=== PATIENT | male | born 1940 | race Caucasian/White ===

== ENCOUNTER 2016-10-14 08:10 | Inpatient (IN) | payer MEDICARE, BC ==
[~2016-10-14] VITALS: Ht 177.8 cm; Wt 87.4 kg
[~2016-10-14 08:10] MED LIST: ARTIFICIAL TEAR15 M7 OU; ASPIRIN 81M81 MG/TA2 PO; BENADRYL25 M2 PO; CENTRUM SILVER1 CTB PO; CIPRO 500MG TA500 MG PO; CO Q-1050 MG PO; COREG 3.123.125 MG/T PO; GAVISCON 80 MG-1 CT1 PO; LEVAQUIN 5500 MG/TA1 PO; LIPITOR 10MG10 MG PO; MAOX420 MG PO; NEXIUM 40MG40 MG PO; NITROSTAT0.4 MG/TAB SL; NORCO 325 MG-51 TAB PO; OCUVITE1 TA1 PO; PLAVIX 75MG TAB75 MG PO; PRINIVIL5 MG PO; PYRIDIUM200 M1 PO; RANEXA 500MG T500 MG PO; SUDAFED60 MG; SUDAFED60 MG PO; TAPAZOLE5 MG PO; THE MEDICINE S200 M2 PO; VITAMIN D 1001000 IU PO; [UNRECOGNIZED DRUG - OTHER] PO; [UNRECOGNIZED DRUG - OTHER] PO
[2016-10-14 09:00] VITALS: BP 129/61; PULSE 84; TEMP 97.9
[2016-10-14] MEDS ORDERED: IMDUR 30MG30 MG/TAB PO (09:02)
[2016-10-14] MEDS ORDERED: COUMADIN 5MG5 MG/TAB PO (09:03)
[2016-10-14] MEDS ORDERED: TYLENOL 325MG325 MG PO (09:04)
[2016-10-14] MEDS ORDERED: CHOLESTOFF PO (09:04)
[2016-10-14 10:19] LABS: HEMATOCRIT 43.7 % (42.0-52.0); HEMOGLOBIN 14.5 g/dl (13.5-18.0); MEAN CELL VOLUME 89 fl (80.0-100.0); MEAN CORPUSCULAR HEMOGLOBIN 30 pg (27.0-31.0); MEAN CORPUSCULAR HGB CONC 33 g/dl (33.0-37.0); MEAN PLATELET VOLUME 11.2 fl (7.4-10.4); PLATELET COUNT 186 K/mm3 (130-400); RED BLOOD COUNT 4.89 M/mm3 (4.20-5.60); WHITE BLOOD COUNT 9.7 K/mm3 (4.8-10.8)
[2016-10-14 10:22] LABS: PROTHROMBIN TIME 34.8 SECONDS (9.7-12.8)
[2016-10-14 10:33] LABS: ADJUSTED CALCIUM 9.4 mg/dL (8.4-10.2); ALBUMIN 4.4 gm/dL (3.5-5.0); BILIRUBIN,TOTAL 1.2 mg/dL (0.0-1.0); CALCIUM 9.7 mg/dL (8.4-10.2); CREATININE, serum 0.9 mg/dL (0.66-1.25); MAGNESIUM 2.1 mg/dL (1.6-2.3); POTASSIUM 4.5 mmol/L (3.4-5.0); TOTAL PROTEIN 8.2 gm/dL (6.4-8.2)
[2016-10-14] MEDS ORDERED: MAG-OX 400400 MG/TAB PO (11:29)
[2016-10-14 12:14] VITALS: BP 114/75; PULSE 71; TEMP 97.7
[2016-10-14 14:25] VITALS: BP 114/75; PULSE 71
[2016-10-14 16:13] VITALS: BP 131/66; PULSE 66; TEMP 97.7
[2016-10-14 19:13] VITALS: BP 130/68; PULSE 72; TEMP 98.1
[2016-10-14 23:56] VITALS: BP 105/57; PULSE 57; TEMP 98.3
[2016-10-15] VITALS (8 sets, daily range): BP systolic 97–142; BP diastolic 46–72; PULSE 56–90; TEMP 97.1–98.4
[2016-10-15 07:25] LABS: CALCIUM 9.4 mg/dL (8.4-10.2); CREATININE, serum 0.91 mg/dL (0.66-1.25); INR 2.6 (0.8-3.0); POTASSIUM 4.4 mmol/L (3.4-5.0); PROTHROMBIN TIME 30.2 SECONDS (9.7-12.8)
[2016-10-16 03:54] VITALS: BP 110/58; PULSE 57; TEMP 97.5
[2016-10-16 07:58] VITALS: BP 107/66; PULSE 62; TEMP 97.4
[2016-10-16 08:10] LABS: INR 2.1 (0.8-3.0); PROTHROMBIN TIME 23.9 SECONDS (9.7-12.8)
[2016-10-16 08:18] LABS: CALCIUM 9.3 mg/dL (8.4-10.2); CREATININE, serum 0.87 mg/dL (0.66-1.25); POTASSIUM 4.7 mmol/L (3.4-5.0)
[2016-10-16 11:21] VITALS: BP 117/62; PULSE 62; TEMP 97.4
[2016-10-16] MEDS ORDERED: PEPCID40 MG PO (12:30)
[2016-10-16] MEDS ORDERED: BETAPACE 80MG80 MG PO (12:31)
[2016-10-16] MEDS ORDERED: COZAAR 50MG50 MG/TAB PO (12:31)
== END 2016-10-16 15:11 | disposition home or self-care (01) | DRG 310 ==
LOC: MEDICAL 08:10
PROVIDERS: Internal Medicine Cardiovascular Disease
DX: I48.0 Paroxysmal atrial fibrillation (principal); I47.2 Ventricular tachycardia; K21.9 Gastro-esophageal reflux disease without esophagitis; J44.9 Chronic obstructive pulmonary disease, unspecified; G47.33 Obstructive sleep apnea (adult) (pediatric); I71.4 Abdominal aortic aneurysm, without rupture; I25.2 Old myocardial infarction; Z95.1 Presence of aortocoronary bypass graft; Z79.01 Long term (current) use of anticoagulants; Z95.5 Presence of coronary angioplasty implant and graft
CPT/HCPCS: A9502; J2785

== ENCOUNTER 2016-10-25 06:48 | Day surgery (SDC) | payer MEDICARE, BC ==
[~2016-10-25] VITALS: Ht 177.8 cm; Wt 87.2 kg
[2016-10-25] VITALS (9 sets, daily range): BP systolic 105–159; BP diastolic 53–102; PULSE 45–85; TEMP 97.7–98.9
[~2016-10-25 06:48] MED LIST changes: +BETAPACE 80MG80 MG PO; +CHOLESTOFF PO; +COUMADIN 5MG5 MG/TAB PO; +COZAAR 50MG50 MG/TAB PO; +IMDUR 30MG30 MG/TAB PO; +MAG-OX 400400 MG/TAB PO; +PEPCID40 MG PO; +TYLENOL 325MG325 MG PO
[2016-10-25 07:37] LABS: HEMATOCRIT 43.3 % (42.0-52.0); HEMOGLOBIN 14.5 g/dl (13.5-18.0); MEAN CELL VOLUME 87 fl (80.0-100.0); MEAN CORPUSCULAR HEMOGLOBIN 29 pg (27.0-31.0); MEAN CORPUSCULAR HGB CONC 34 g/dl (33.0-37.0); MEAN PLATELET VOLUME 11.4 fl (7.4-10.4); PLATELET COUNT 135 K/mm3 (130-400); RED BLOOD COUNT 4.97 M/mm3 (4.20-5.60); REDCELL DISTRIBUTION WIDTH-CV 13.7 % (11.5-14.5)
[2016-10-25 07:44] LABS: INR 1.8 (0.8-3.0); PROTHROMBIN TIME 20.4 SECONDS (9.7-12.8)
[2016-10-25] MEDS ORDERED: COUMADIN 6MG6 MG/TAB PO (08:00)
[2016-10-25 08:12] LABS: CALCIUM 9.4 mg/dL (8.4-10.2); CREATININE, serum 0.87 mg/dL (0.66-1.25); POTASSIUM 4.4 mmol/L (3.4-5.0)
[2016-10-26 00:05] VITALS: BP 126/67; PULSE 61; TEMP 97.7
[2016-10-26 04:06] VITALS: BP 127/62; PULSE 95; TEMP 98.1
[2016-10-26 08:54] VITALS: BP 119/54; PULSE 70; TEMP 97.6
[2016-10-26] MEDS ORDERED: CLEOCIN HCL300 MG PO (12:03)
[2016-10-26 12:07] VITALS: BP 126/66; PULSE 59; TEMP 97.8
== END 2016-10-26 14:30 | disposition home or self-care (01) ==
LOC: EUO 06:48 → COL.RAD 07:00 → MEDICAL 11:14 → EUO 10-26 14:30
PROVIDERS: Internal Medicine Cardiovascular Disease
DX: I25.5 Ischemic cardiomyopathy (principal); I47.2 Ventricular tachycardia; I25.10 Atherosclerotic heart disease of native coronary artery without angina pectoris; Z95.1 Presence of aortocoronary bypass graft; E78.5 Hyperlipidemia, unspecified; I71.4 Abdominal aortic aneurysm, without rupture; K21.9 Gastro-esophageal reflux disease without esophagitis; J44.9 Chronic obstructive pulmonary disease, unspecified; G47.30 Sleep apnea, unspecified
CPT/HCPCS: OP; C1721; C1894; C1895; C1898; J2250; J3010; J3370; J7050

== ENCOUNTER 2020-11-10 18:34 | Inpatient (IN) | payer MEDICARE, BC ==
[~2020-11-10] VITALS: Ht 177.8 cm; Wt 77.9 kg
[~2020-11-10 18:34] MED LIST changes: +CLEOCIN HCL300 MG PO; +COUMADIN 6MG6 MG/TAB PO
--- NOTE | 2020-11-10 19:40 | NUR ---
PT ARRIVES VIA AMBULANCE STRETCHER. IS ALERT AND ORIENTED X4. SL TO LEFT FOREARM. HAS DRSGS TO BILATERAL LOWER LEGS. ABD DISTENDED.
[2020-11-10] MEDS ORDERED: ALDACTONE 25MG25 M1 PO (19:52)
[2020-11-10] MEDS ORDERED: BETAPACE AF160 MG PO (19:53)
[2020-11-10] MEDS ORDERED: COUMADIN 2MG2 MG/TAB PO (20:26)
[2020-11-10] MEDS ORDERED: COUMADIN 1MG1 MG/TAB PO (20:26)
[2020-11-10] MEDS ORDERED: PROTONIX20 MG PO (20:31)
[2020-11-10 20:35] LABS: PHOSPHOROUS 3.2 mg/dL (2.5-4.5)
[2020-11-10 20:38] VITALS: BP 139/71; PULSE 70; TEMP 97.4
[2020-11-10 20:58] LABS: TROPONIN-I < 0.012 ng/mL (0.000-0.035)
--- NOTE | 2020-11-10 21:37 | NUR ---
Vancomycin Initial Dosing Pharmacy Note Ordering provider: Mustapha Grant MD 80 YO M Indication/duration: SSTI/ 7 DAYS GOAL: 10-20 DOSING HX: NO LEVELS TO ASSOCIATE WITH PREVIOUS DOSING BMI:28.3 WT: 89.5 KG OSH SCR: 1.1 EST CRCL~ 66 ML/MIN T 1/2~ 12H TMAX: 97.4 OSH WBC: 6.7 BCX2 IN PROCESS WOUND CX IN PROCESS NO IMAGING OF AREA AVAILABLE LOADED PT WITH 1750 MG X1 (~20 MG/KG). MAINTENANCE REGIMEN OF 750 MG Q12H INITIATED. WILL FOLLOW RENAL FUNCTION, MICRO, AND PLAN FOR NEED TO ADJUST THERAPY. THANK YOU FOR THIS DOSING CONSULT!
--- NOTE | 2020-11-10 22:08 | NUR ---
PATIENT NO LONGER USES A PAP DEVICE AT HOME. HE DECLINED TO USE OUR PAP DEVICE.
--- NOTE | 2020-11-10 22:15 | NUR ---
PT HAVING INCONTINENT LOOSE STOOLS, REPORTS HE IS UNABLE TO GET UP TO BSC AT THIS TIME. HAS SIGNIFICANT EDMEA FROM ANKLES TO HIPS BILATERALLY. VOIDING PER URINAL. IV VANCO INFUSING WITHOUT PROBLEM TO LEFT ARM IV SITE. ABD DISTENDED. POTASSIUM REPLACEMENT AT BEDSIDE, PT DRINKING SLOWLY.
[2020-11-10 22:26] LABS: COLLECTION METHOD CLEAN CATCH
[2020-11-10 22:39] LABS: MUCOUS Present /lpf; PH 5 (5-8); SQUAMOUS EPITHELIAL None Seen /hpf; URINE APPEARANCE Clear; URINE BACTERIA None Seen /hpf; URINE BILIRUBIN Negative (NEGATIVE); URINE BLOOD 1+ (NEGATIVE); URINE COLOR Yellow; URINE GLUCOSE Negative (NEGATIVE); URINE KETONE Negative (NEGATIVE); URINE LEUKOCYTE ESTERASE Negative (NEGATIVE); URINE NITRATE Negative (NEGATIVE); URINE PROTEIN(semi-quant) 1+ (NEGATIVE); URINE UROBILINOGEN Negative (NEGATIVE)
--- NOTE | 2020-11-10 23:00 | NUR ---
PLACED EXTERNAL MALE CATHETER ON PT. WANTS REMOVED IT IS DIFFICULT TO URINATE WITH IT ON. USING URINAL AT THIS TIME.
[2020-11-10 23:45] VITALS: BP 143/92; PULSE 81; TEMP 97.3
--- NOTE | 2020-11-11 02:04 | NUR ---
TYLENOL 650MG PO FOR GENERAL DISCOMFORT. IV ANTIBIOTICS COMPLETE.
[2020-11-11 05:39] VITALS: BP 132/74; PULSE 68; TEMP 97.4
--- NOTE | 2020-11-11 06:55 | NUR ---
PHONED DR BARRIENTOS FOR NEW CONSULT, WAS INFORMED DR BAY IS SOIL TESTER AT [phone] AND TO CALL THEM.
[2020-11-11 07:22] VITALS: BP 119/76; PULSE 69; TEMP 97.3
--- NOTE | 2020-11-11 08:00 | NUR ---
PATIENT IS ORIENTED X3. VSS WITH TELE INPLACE. DENIES PAIN. NOTED ABD ASCITES. ABD IS DISTENDED AND WITH HYPO BOWL SOUNDS. NO C/O N/V. TOLERATING CLEAR LIQUID DIET. LEFT FORARM IV TO INT. INCONTINENT OF BOWL/BLADDER. PATIENT HAD A SMALL, CAPPS, SOFT-FORMED BM THIS AM. PATIENT SCHEDULED FOR COLONOSCOPY TOMORROW. SEE BOWL PREP ORDER TONIGHT. POTASSIUM PROTOCOL GIVEN. PATIENT HAS EXTENSIVE CARDIAC HX. CALLED CARDIAC CONSULT THIS AM. NOTED BLE WITH POOR VASCULAR FLOW, SCALING/FLAKING, AND +2 EDEMA. HEAD TO TOE ASSESSMENT COMPLETE. CALL LIGHT IN REACH.
[2020-11-11 08:10] LABS: BASO % 0.3 % (0.0-2.0); EOS # 0.1 (0.0-0.7); EOS % 1.9 % (0-4.0); GRAN # 4.4 (1.4-6.5); GRAN % 70.1 % (42.2-75.2); HEMATOCRIT 42.6 % (42.0-52.0); HEMOGLOBIN 13.5 g/dl (13.5-18.0); LYMPH % 16.2 % (20.0-51.0); MEAN CELL VOLUME 90 fl (80.0-100.0); MEAN CORPUSCULAR HEMOGLOBIN 29 pg (27.0-31.0); MEAN CORPUSCULAR HGB CONC 32 g/dl (33.0-37.0); MEAN PLATELET VOLUME 11.9 fl (7.4-10.4); MONO # 0.7 (0.1-0.6); MONO % 11.2 % (1.7-9.3); PLATELET COUNT 153 K/mm3 (130-400); RED BLOOD COUNT 4.72 M/mm3 (4.20-5.60); REDCELL DISTRIBUTION WIDTH-CV 19.9 % (11.5-14.5)
[2020-11-11 08:16] LABS: ALBUMIN 2.7 gm/dL (3.5-5.0); BILIRUBIN,TOTAL 1.8 mg/dL (0.0-1.0); CALCIUM 8.5 mg/dL (8.4-10.2); CREATININE, serum 0.8 (0.66-1.25)
[2020-11-11 09:03] LABS: POTASSIUM 2.9 mmol/L (3.4-5.0)
--- NOTE | 2020-11-11 10:00 | NUR ---
AT BEDSIDE, SEE ORDERS.
--- NOTE | 2020-11-11 10:18 | NUR ---
AT BEDSIDE, SEE ORDERS.
[2020-11-11 11:08] VITALS: BP 117/66; PULSE 66; TEMP 97.2
--- NOTE | 2020-11-11 14:33 | NUR ---
Plan is to return home to [place], resides independently. SW met with patient about care. Patient reports that he has Home care with the [facility] and a home health care wound care nurse. Patient reports he is using the services 2x a week. Patinet reports that he uses a walker that is sit to stad. Patient reports having a CPAP but not using it. Patient reports PCP is Dr. Burch and RX obtained at [facility] without difficulty. Patient reports that his nephew Richard is NOK. ARMANDO educated on services. Will continue to follow for changes in needs.
[2020-11-11 16:46] VITALS: BP 116/76; PULSE 69; TEMP 97.2
--- NOTE | 2020-11-11 17:30 | NUR ---
PATIENT STARTED ON BOWL PREP PER ORDERS. PATIENT HAD A HARD TIME TAKING IN THE ORAL POTASSIUM TODAY. PATIENT SEEMS DISCOURAGED ABOUT DRINKING THE BOWL PREP. PATIENT IS INCONTINENT. BRIEF INPLACE. DIURRETICS WORKING WELL. PATIENT VOIDING FREQUENTLY AND HE LIKES TO LEAVE THE URINAL INPLACE. PATIENT RESTING WITHOUT ANY NEEDS AT THIS TIME.
[2020-11-11 20:00] VITALS: BP 125/82; PULSE 67; TEMP 98.7
--- NOTE | 2020-11-11 23:15 | NUR ---
PT HAS DRANK CLOSE TO 1/2 OF BOWEL PREP BUT STILL HAS NOT HAD ANY BOWEL MOVEMENTS. NO c/o PAIN.
[2020-11-12 00:27] VITALS: BP 118/76; PULSE 69; TEMP 97.5
--- NOTE | 2020-11-12 02:23 | NUR ---
PT HAS FINISHED BOWEL PREP BUT STILL HAS NOT HAD ANY RESULTS.
[2020-11-12 04:01] VITALS: BP 143/80; PULSE 70; TEMP 97.4
--- NOTE | 2020-11-12 05:30 | NUR ---
PT FINALLY HAS STOOL A RESULT OF BOWEL PREP. STOOL WAS WATERY. HE WAS INCONTINENT SO NO SAMPLE WAS OBTAINED.
[2020-11-12 06:35] LABS: BASO % 0.2 % (0.0-2.0); EOS # 0.2 (0.0-0.7); EOS % 3.2 % (0-4.0); GRAN % 67.4 % (42.2-75.2); HEMOGLOBIN 14.9 g/dl (13.5-18.0); LYMPH % 16.2 % (20.0-51.0); MEAN CELL VOLUME 90 fl (80.0-100.0); MEAN CORPUSCULAR HEMOGLOBIN 28 pg (27.0-31.0); MEAN CORPUSCULAR HGB CONC 32 g/dl (33.0-37.0); MEAN PLATELET VOLUME 11.3 fl (7.4-10.4); MONO # 0.8 (0.1-0.6); MONO % 12.7 % (1.7-9.3); PLATELET COUNT 164 K/mm3 (130-400); RED BLOOD COUNT 5.25 M/mm3 (4.20-5.60); REDCELL DISTRIBUTION WIDTH-CV 20.3 % (11.5-14.5)
[2020-11-12 06:50] LABS: INR 1.7 (0.8-3.0); PROTHROMBIN TIME 19.3 SECONDS (9.7-12.8)
[2020-11-12 06:51] LABS: BILIRUBIN,TOTAL 1.9 mg/dL (0.0-1.0); CALCIUM 8.5 mg/dL (8.4-10.2); CREATININE, serum 0.86 (0.66-1.25); MAGNESIUM 1.8 mg/dL (1.6-2.3); POTASSIUM 3.9 mmol/L (3.4-5.0); TOTAL PROTEIN 6.6 gm/dL (6.4-8.2)
[2020-11-12 07:59] VITALS: BP 123/83; PULSE 74; TEMP 97.8
--- NOTE | 2020-11-12 08:50 | NUR ---
CALLED WITH PATIENT STATUS UPDATE. BOWL PREP WAS NOT AFFECTIVE TILL 0500, ROLLER REPORTS WATERY STOOL. PATIENT IS INCONTINENT OF BOWL/BLADDER. PATIENT ON TELE AND IS GOING IN AND OUT OF A-FIB. PATIENT HAS HX OF A-FIB AND IS STABLE IN THE 70-80'S. NO CHEST PAIN OR SOA. CONSENT ON CHART. PRE-OP FLUIDS DRIPPING.
--- NOTE | 2020-11-12 09:10 | NUR ---
PATIENT GOING DOWN TO ENDO VIA BED. CONSENT ON CHART.
[2020-11-12 17:06] VITALS: BP 135/50; PULSE 89; TEMP 98.2
[2020-11-12 20:19] VITALS: BP 128/78; PULSE 85; TEMP 97.6
--- NOTE | 2020-11-12 23:59 | NUR ---
PT HAS BEEN A BIT DISORIENTED, MORE FORGETFUL TONIGHT. PULLING OFF TELE, DISROBING AND TRYING TO GET OUT OF BED. BED ALARM ON.
[2020-11-13 01:35] VITALS: BP 128/79; PULSE 76; TEMP 98
[2020-11-13 04:49] VITALS: BP 118/75; PULSE 71; TEMP 97.5
--- NOTE | 2020-11-13 06:15 | NUR ---
RESTING QUIETLY. UP SEVERAL TIMES TO USE COMMODE. INCONT. OF STOOL AND URINE. PT AWARE OF PARACENTESIS TODAY.
[2020-11-13 06:30] LABS: INR 1.8 (0.8-3.0); PROTHROMBIN TIME 20.5 SECONDS (9.7-12.8)
[2020-11-13 06:35] LABS: ALBUMIN 2.6 gm/dL (3.5-5.0); BILIRUBIN,TOTAL 2.5 mg/dL (0.0-1.0); CALCIUM 8.3 mg/dL (8.4-10.2); CREATININE, serum 0.8 (0.66-1.25); POTASSIUM 3.4 mmol/L (3.4-5.0); TOTAL PROTEIN 5.8 gm/dL (6.4-8.2)
[2020-11-13 08:00] VITALS: BP 110/57; PULSE 68; TEMP 97.8
--- NOTE | 2020-11-13 10:36 | NUR ---
Patient alert and oriented, answers questions appropriately. See assessment. Abdomen firm, distended. Bowel sounds audible x4 quads. +Flatus. +Bowel movement. Incontinent of urine and bowel. BLE with redness, weeping and open areas noted. Foam dressing applied to open areas. Pulses palpable 1+. BLE 2+ edema noted. No c/o at this time.
--- NOTE | 2020-11-13 11:00 | NUR ---
First visit from the soft hat binder. No needs right now.
--- NOTE | 2020-11-13 12:54 | NUR ---
Power Shovel Engineer contacted [facility] to follow up on patient. Lizet at [facility] advised they do provide in home services like cleaning, laundry, and running errands, but not skilled Home Health. Lizet states she believes patient's HH provider is [facility]. ARMANDO contacted Buck at [facility] and confirmed they have patient and would continue to follow him. ARMANDO faxed updates to the [place] office at fax#[phone]. ARMANDO then reviewed PT evaluation from this morning recommending post acute rehab. ARMANDO met with patient who advised his first preference is [facility] and second preference is either [facility] or [facility]. SW discussed transportation to [facility] and patient states he has no family or friends that could take him but could possible utilize [facility] public transportation. ARMANDO faxed referrals to [facility], [facility], and [facility]. SW will continue to follow.
--- NOTE | 2020-11-13 14:48 | NUR ---
Dressing changed to left medial calf. Approx 6cm x 4cm open area, depth approx 1/2cm. Wound bed red, moderated amount of yellow drainage noted. Skin around wound with redness noted, blanchable. Aquacel Ag Advantage applied to wound bed, covered with foam dressing. Pulses 1+ to BLE, no c/o numbness or tingling. Dressing changed to right posterior calf. Approx 2cm x 2cm open area, depth approx 1/4cm noted. Wound bed red, scant amount of yellow drainage noted. Skin around wound bed with redness noted, blanchable. Aquacel Ag Advantage applied to wound bed, covered with foam dressing. Tolerated well.
[2020-11-13 15:50] VITALS: BP 133/64; PULSE 68; TEMP 97.5
--- NOTE | 2020-11-13 16:32 | NUR ---
System Consultant spoke with Sera at [facility] who advised they will follow referral and inquired about acceptance at first preference. ARMANDO spoke with Steff at [facility] who advised she would be here tomorrow afternoon to complete an application with patient. Steff anticipates they should be able to accept but the application has to be reviewed by their team.
--- NOTE | 2020-11-13 19:30 | NUR ---
Pt. laying in bed. Pt. is A&OX3, assessment complete. INT to rt. forearm patent. Pt. denies pain or other needs, call light within reach.
[2020-11-13 20:22] VITALS: BP 127/82; PULSE 77; TEMP 97.4
[2020-11-14 00:01] VITALS: BP 129/82; PULSE 74; TEMP 97.6
[2020-11-14 03:35] VITALS: BP 135/79; PULSE 76; TEMP 97.5
[2020-11-14 07:21] LABS: BASO % 0.2 % (0.0-2.0); EOS # 0.1 (0.0-0.7); EOS % 0.5 % (0-4.0); GRAN # 9.7 (1.4-6.5); GRAN % 83.1 % (42.2-75.2); HEMATOCRIT 46.7 % (42.0-52.0); HEMOGLOBIN 15.2 g/dl (13.5-18.0); LYMPH # 0.8 (1.2-3.4); LYMPH % 6.4 % (20.0-51.0); MEAN CELL VOLUME 88 fl (80.0-100.0); MEAN CORPUSCULAR HEMOGLOBIN 29 pg (27.0-31.0); MEAN CORPUSCULAR HGB CONC 33 g/dl (33.0-37.0); MEAN PLATELET VOLUME 12.1 fl (7.4-10.4); MONO # 1.1 (0.1-0.6); MONO % 9.5 % (1.7-9.3); PLATELET COUNT 153 K/mm3 (130-400); RED BLOOD COUNT 5.31 M/mm3 (4.20-5.60); REDCELL DISTRIBUTION WIDTH-CV 20.2 % (11.5-14.5)
[2020-11-14 07:37] LABS: ALBUMIN 3.2 gm/dL (3.5-5.0); BILIRUBIN,TOTAL 2.8 mg/dL (0.0-1.0); CALCIUM 8.7 mg/dL (8.4-10.2); CREATININE, serum 0.79 (0.66-1.25); POTASSIUM 3.6 mmol/L (3.4-5.0); TOTAL PROTEIN 6.8 gm/dL (6.4-8.2)
[2020-11-14 07:57] VITALS: BP 146/93; PULSE 122; TEMP 97.5
--- NOTE | 2020-11-14 08:00 | NUR ---
Shift assessment completed. Pt was drowsy throughout and stated that he had no pain, but was "just feeling yucky". BP 146/59, pulse 122, O2Sat 86%. Tele in place and INT intact to R hand. HOB elevated.
--- NOTE | 2020-11-14 08:30 | NUR ---
Pt received bed bath, new gown, and oral care. Refused Linen change as he was feeling nauseated.
--- NOTE | 2020-11-14 08:56 | NUR ---
Patient alert and oriented, answers questions appropriately. See assessment. Lungs CTA. Abdomen distended, firm. Bowel sounds active x4 quads. +Flatus. Several loose bowel movements. BLE with 1+ edema noted, pulses palpable. Open area to BLE with dressing CDI. Redness and flaky skin noted to BLE. No c/o at this time.
--- NOTE | 2020-11-14 09:30 | NUR ---
BP 130/91, O2Sat 91%. HOB elevated. Pt states no pain, but is complaining of continuous loose stools.
[2020-11-14 12:00] VITALS: BP 121/80; PULSE 73; TEMP 97.5
--- NOTE | 2020-11-14 12:54 | NUR ---
General Neurologist notified RNJojo that Steff from [facility] will be here this afternoon to screen patient. SW faxed clinical updates and also left a message for SEDRICK Georges at [facility] to follow up on referral as they are second preference if [facility] cannot accept.
[2020-11-14 15:54] VITALS: BP 129/90; PULSE 77; TEMP 97.4
[2020-11-14 20:26] VITALS: BP 129/87; PULSE 74; TEMP 98.4
--- NOTE | 2020-11-14 21:45 | NUR ---
Pt. sitting up in bed. Pt. is A&OX3, assessment complete. INT to rt. wrist patent. Pt. denies pain. Pt. reports that he has not had any more bm's at this time. Pt. denies further needs, call light within reach.
[2020-11-15 00:22] VITALS: BP 134/88; PULSE 73; TEMP 98.5
[2020-11-15 04:30] VITALS: BP 123/65; PULSE 73; TEMP 98.3
[2020-11-15 07:03] VITALS: BP 121/79; PULSE 65; TEMP 98.4
[2020-11-15 07:06] LABS: BASO % 0.3 % (0.0-2.0); EOS # 0.1 (0.0-0.7); EOS % 1.2 % (0-4.0); GRAN % 76.6 % (42.2-75.2); HEMATOCRIT 46.2 % (42.0-52.0); HEMOGLOBIN 14.8 g/dl (13.5-18.0); LYMPH % 12.3 % (20.0-51.0); MEAN CELL VOLUME 88 fl (80.0-100.0); MEAN CORPUSCULAR HEMOGLOBIN 28 pg (27.0-31.0); MEAN CORPUSCULAR HGB CONC 32 g/dl (33.0-37.0); MEAN PLATELET VOLUME 11.9 fl (7.4-10.4); MONO # 0.7 (0.1-0.6); MONO % 9.1 % (1.7-9.3); PLATELET COUNT 145 K/mm3 (130-400); RED BLOOD COUNT 5.27 M/mm3 (4.20-5.60); REDCELL DISTRIBUTION WIDTH-CV 19.8 % (11.5-14.5)
[2020-11-15 07:09] LABS: INR 1.7 (0.8-3.0); PROTHROMBIN TIME 19.1 SECONDS (9.7-12.8)
[2020-11-15 07:30] LABS: ALBUMIN 3.1 gm/dL (3.5-5.0); BILIRUBIN,TOTAL 2.8 mg/dL (0.0-1.0); CALCIUM 8.6 mg/dL (8.4-10.2); CREATININE, serum 0.84 (0.66-1.25); POTASSIUM 3.3 mmol/L (3.4-5.0); TOTAL PROTEIN 6.5 gm/dL (6.4-8.2)
--- NOTE | 2020-11-15 08:58 | NUR ---
PT OUT TO [facility] WITH THERAPY. PT REPORTING THAT HE CANNOT EAT BECAUSE OF NAUSEA WHEN HE EATS FOOD. OFFERED MEDICATIONS AND OTHER REMEDIES BUT PT REFUSED ALL. PT IS A/O X4 AT THIS TIME. PT PLANS ON TRANSFERING TO [facility] IN [place]. ABDOMEN REMAINS OBTUNDED. PT DENIES PAIN AT THIS TIME. IV TO RFA.
[2020-11-15] MEDS ORDERED: DOXYCYCLINE 10100 MG PO (09:54)
[2020-11-15] MEDS ORDERED: LIPITOR 80MG80 MG PO (09:55)
[2020-11-15] MEDS ORDERED: IMODIUM 2MG CAPS2 MG PO (09:56)
[2020-11-15] MEDS ORDERED: K-DUR 10 MEQ T10 MEQ PO (09:57)
[2020-11-15] MEDS ORDERED: LASIX 40MG TABL40 MG PO (09:57)
--- NOTE | 2020-11-15 10:09 | NUR ---
Health Information Managers attended clinical rounds and patient is ready for discharge today. ARMANDO contacted Steff at [facility] who advised they can accept patient today and requested an 1100 garbage pick up man time. ARMANDO notified RN, Krzysztof and patient of transport time. ARMANDO read IM form aloud to patient who verbalized understanding and gave SW permission to sign on his behalf. ARMANDO placed form in chart and provided copy to patient. ARMANDO faxed discharge orders to [facility] along with negative COVID test from this moring. ARMANDO contacted [facility] and [facility] to notify them that first preference accepted. No additional needs at this time.
--- NOTE | 2020-11-15 11:01 | NUR ---
DRESSING CHANGE COMPLETE TO BILATERAL DECUB ULCERS. PT TO TRANSFER TO [facility] IN [place] @ 1100.
--- NOTE | 2020-11-15 11:33 | NUR ---
REPORT CALLED TO [facility]. PT LEFT WITH TRANSPORTATION.
== END 2020-11-15 11:34 | DRG 388 ==
LOC: SURG 18:34
PROVIDERS: Nurse Practitioner Family; Physician Assistant; ADMIT Internal Medicine
PROC: 0DJD8ZZ Inspection of Lower Intestinal Tract, Via Natural or Artificial Opening Endoscopic (ICD-10-PCS; principal; 2020-11-10)
DX: K56.699 Other intestinal obstruction unspecified as to partial versus complete obstruction (principal); I50.23 Acute on chronic systolic (congestive) heart failure; R18.8 Other ascites; I48.20 Chronic atrial fibrillation, unspecified; I47.2 Ventricular tachycardia; L03.115 Cellulitis of right lower limb; M48.54XA Collapsed vertebra, not elsewhere classified, thoracic region, initial encounter for fracture; E44.0 Moderate protein-calorie malnutrition; E87.3 Alkalosis; I11.0 Hypertensive heart disease with heart failure; K63.89 Other specified diseases of intestine; K22.70 Barrett's esophagus without dysplasia; E78.5 Hyperlipidemia, unspecified; I25.5 Ischemic cardiomyopathy; I25.10 Atherosclerotic heart disease of native coronary artery without angina pectoris; G47.33 Obstructive sleep apnea (adult) (pediatric); J44.9 Chronic obstructive pulmonary disease, unspecified; Z20.822 Contact with and (suspected) exposure to COVID-19; Z86.16 Personal history of COVID-19; I83.019 Varicose veins of right lower extremity with ulcer of unspecified site; I35.0 Nonrheumatic aortic (valve) stenosis; I71.4 Abdominal aortic aneurysm, without rupture; E87.6 Hypokalemia; Z90.49 Acquired absence of other specified parts of digestive tract; Z95.1 Presence of aortocoronary bypass graft; I25.2 Old myocardial infarction; Z79.01 Long term (current) use of anticoagulants; Z79.82 Long term (current) use of aspirin; Z87.891 Personal history of nicotine dependence; Z88.8 Allergy status to other drugs, medicaments and biological substances; Z95.5 Presence of coronary angioplasty implant and graft; Z95.810 Presence of automatic (implantable) cardiac defibrillator
CPT/HCPCS: 99223-AI; 99232-AI; 99233-AI; 99239; J1940; J2704; J3370; J3480; J7030; J7050